=== PATIENT | female | born 1965 | race African-American/Black ===

== ENCOUNTER → 2017-04-12 | Outpatient (CLI) | payer OTHER ==
[~2017-04-12] MED LIST: FELODIPINE ER10 MG; FELODIPINE ER10 MG PO; IRON325 PO; MICROGESTIN1 EAC1 PO; OXYCODON-ACETA1 EAC1 PO; PERCOCET 5-3251 EACH PO; PLENDIL10 MG PO; VICODIN 5-5001 EACH PO; VITAMIN D1000 UNI1 PO; ZOFRAN ODT4 MG PO
== END ==
LOC: RAD 10:07
DX: Z12.31 Encounter for screening mammogram for malignant neoplasm of breast (principal)